=== PATIENT | female | born 1990 | race Caucasian/White ===

== ENCOUNTER 2024-02-03 13:44 | Outpatient (CLI) | payer BC, SELFPAY ==
--- NOTE | ~2024-02-03 | US_ITS ---
EXAMINATION: US pelvic complete w TV DATE: 02/03/2024 14:09 INDICATION: Abnormal uterine and vaginal bleeding. TECHNIQUE: Multiple transabdominal and transvaginal sonographic images of the pelvis were obtained. COMPARISON: None. FINDINGS: TRANSABDOMINAL ULTRASOUND: The uterus measures 8.3 x 5.4 x 4.4 cm. There is no free fluid in the pelvis. TRANSVAGINAL ULTRASOUND: The endometrial complex measures 8 mm in thickness. The right ovary measures 2.3 x 2.0 x 2.6 cm. The left ovary measures 5.5 x 5.0 x 2.6 cm. In the left ovary, there is a 4.9 cm cystic mass with low-lev el echoes, likely a hemorrhagic cyst. There is normal vascular flow in the ovaries. IMPRESSION: 1. 4.9 cm hemorrhagic cyst in left ovary. Pelvis ultrasound is recommended in 6-12 weeks. Reviewed, dictated and finalized at location A. TENDER CHIEF OPERATOR IMPRESSION: 1. 4.9 cm hemorrhagic cyst in left ovary. Pelvis ultrasound is recommended in 6 -12 weeks.
== END 2024-02-03 13:45 | disposition home or self-care (01) ==
LOC: GOSHIMG 13:45
PROVIDERS: PCP Nurse Practitioner Obstetrics & Gynecology; Visit Provider Nurse Practitioner Obstetrics & Gynecology
DX: N83.202 Unspecified ovarian cyst, left side (principal)
CPT/HCPCS: 76830; 76856

== ENCOUNTER 2024-02-05 12:45 | Outpatient (CLI) | payer BC, SELFPAY ==
[2024-02-08 05:34] LABS: Progesterone 7.3 ng/mL
== END 2024-02-05 12:46 | disposition home or self-care (01) ==
PROVIDERS: PCP Nurse Practitioner Obstetrics & Gynecology; Visit Provider Nurse Practitioner Obstetrics & Gynecology
DX: N93.9 Abnormal uterine and vaginal bleeding, unspecified (principal)
CPT/HCPCS: 36415; 84144; 84443

== ENCOUNTER 2024-05-07 10:57 | Outpatient (CLI) | payer BC, SELFPAY ==
[2024-05-08 02:28] LABS: Progesterone 6.1 ng/mL
== END 2024-05-07 10:58 | disposition home or self-care (01) ==
LOC: ANHLAB 10:58
PROVIDERS: PCP Nurse Practitioner Obstetrics & Gynecology; Visit Provider Nurse Practitioner Obstetrics & Gynecology
DX: Z31.69 Encounter for other general counseling and advice on procreation (principal)
CPT/HCPCS: 36415; 84144

== ENCOUNTER 2024-05-18 12:23 | Outpatient (CLI) | payer BC, SELFPAY ==
[2024-05-18 12:56] LABS: Hematocrit 40.5 % (37.0-47.0); Hemoglobin 13.3 g/dL (12.0-15.0); Mean Corpuscular HGB Conc 32.8 g/dl (32-36); Mean Corpuscular Hemoglobin 30.2 pg (26-34); Mean Platelet Volume 9.9 fl (7.4-10.4); Platelet Count Result 251 k/mm3 (150-375); Red Cell Distribution Width 12.6 % (11.5-14.5); White Blood Count 7.7 K/mm3 (4.5-10.0)
[2024-05-18 13:09] LABS: Alanine Aminotransferase 20 U/L (6-35); Albumin Level 4.9 g/dL (3.5-5.1); Alkaline Phosphatase 67 U/L (38-126); Anion Gap 13 mmol/L (4-12); Aspartate Amino Transferase 23 U/L (14-36); Bilirubin,Total 0.5 mg/dL (0.2-1.3); Blood Urea Nitrogen 13 mg/dL (7-17); Calcium 9.5 mg/dL (8.4-10.2); Carbon Dioxide 25 mmol/L (22-30); Chloride 103 mmol/L (98-107); Estimated Glomerular Filt Rate > 60; Glucose 86 mg/dL (65-110); Potassium 4.3 mmol/L (3.4-5.0); Sodium 141 mmol/L (137-145)
[2024-05-18 13:47] LABS: HIV 1/2 Ab P24 Ag Result Negative (Negative)
[2024-05-18 14:01] LABS: Rubella IgG Antibody 32.8 IU/ML
[2024-05-18 14:22] LABS: Hepatitis C Virus Antibody Negative (Negative)
[2024-05-18 15:24] LABS: Syphilis IgG/IgM Antibody Negative (Negative)
[2024-05-19 08:13] LABS: FSH 11.2 mIU/mL; Prolactin 4.6 ng/mL
[2024-05-19 11:38] LABS: Hepatitis Be Antigen NON-REACTIVE (NON-REACTIVE)
[2024-05-20 07:38] LABS: Varicella IgG Antibody 9.28 S/CO
== END 2024-05-18 12:24 | disposition home or self-care (01) ==
LOC: ANHLAB 12:25
PROVIDERS: PCP Nurse Practitioner Obstetrics & Gynecology; Visit Provider Obstetrics & Gynecology
DX: N97.9 Female infertility, unspecified (principal)
CPT/HCPCS: 36415; 80053; 83001; 84146; 85027; 86593; 86703; 86762; 86787; 86803; 87350; G0432

== ENCOUNTER 2024-05-26 10:31 | Outpatient (CLI) | payer BC, SELFPAY ==
--- NOTE | ~2024-05-26 | XR_ITS ---
TECHNIQUE: Hysterosalpingogram was performed by Dr. Hema Mitchell MD with fluoroscopic guidance. I was present to obtain fluoroscopic images. FINDINGS: Binder Cutter radiograph demonstrates an unremarkable pelvis. Fluoroscopic images demonstrates an elongated cervix of greater than 8 cm. The endometrial cavity is somewhat narrowed, but otherwise fluoroscopically unremarkable. Upon inject ion of contrast, both fallopian tubes opacify and are normal in appearance. No spillage into the pelvis is visualized. IMPRESSION: Markedly elongated cervix. Opacification of the bilateral fallopian tubes, without free spillage into the pelvis. Fluoroscopy time: 2.9 minutes DOSE AREA PRODUCT: 20.9 Gy-cm2 38 images Reviewed, dictated and finalized at location A.
[2024-05-26 11:45] LABS: Beta HCG Quantitative < 2.39 mIU/ML
== END 2024-05-26 10:32 | disposition home or self-care (01) ==
PROVIDERS: PCP Nurse Practitioner Obstetrics & Gynecology; Visit Provider Obstetrics & Gynecology
DX: N88.4 Hypertrophic elongation of cervix uteri (principal); N97.9 Female infertility, unspecified
CPT/HCPCS: 36415; 58340; 74740; 84702; Q9966

== ENCOUNTER 2024-11-03 04:13 | Day surgery (SDC) | payer BC, SELFPAY ==
[2024-10-22 13:18] VITALS: BMI 25.8
--- NOTE | 2024-10-22 13:25 | PC.NURSE ---
Report to the Outpatient Waiting Room, entrance under the green pavilion located off [facility], at time _1pm_ on date _[id number]_. Planned Procedure Time: _3pm_.? Time changes happen often and if your time is changed the preop area will call you the afternoon before. - You and your visitor will be asked to self-screen and do not enter if you have any COVID symptoms. Please call surgeon if you need to reschedule. - A mask is optional within the hospital at this time. Patients may have clear liquids (water, carbonated beverages, clear teas, apple juice) until 3 hours prior to surgery with a maximum of 20 ounces. - No food from midnight until time of surgery and no smoking, or chewing tobacco (or any form of nicotine). No chewing gum, candy or mints. Take only the following medications with a SIP of water on the morning of surgery: __None DO NOT STOP ANY OF YOUR OTHER PRESCRIPTION MEDICATIONS PRIOR TO SURGERY EXCEPT THE FOLLOWING Hold all vitamins and supplements for 3 days per anesthesiologist. Medications to discontinue per physician Date to take last dose Please no make-up, nail british, hairspray, perfume, deodorant, or body powder the day of surgery.? No jewelry (including any body piercings) or valuables the day of surgery, leave them at home.? Please take a shower or bath the night before, or the morning of, surgery with an antibacterial soap.? Wear comfortable, loose fitting clothing.? - Jewelry must be removed prior to entering the operating room.? Rings and piercings that are not removed may be cut off. - The hospital will not accept responsibility for valuables.? - Please leave all valuables, including medications, at home the day of surgery. If you are going home after surgery, a licensed explosives truck driver must drive you home.? - NO public transportation without another adult if you receive anesthesia. - We recommend that an adult stay with you for 24 hours following discharge. - We also recommend that you do not drive, make important decision, drink alcoholic beverages, or take any drugs that were not prescribed by your health care provider for at least 24 hours after your discharge time. Follow any additional instructions given to you from your surgeon. Telephone instructions given to __Ramiroskye__and asked if any additional questions and then verbalized understanding. Patient advised to call surgeon office or pre surgery nurse liaison [phone] if any additional questions.
[2024-11-03] VITALS (8 sets, daily range): BP systolic 106–159; BP diastolic 60–83; PULSE 72–97; RESP 12–16; TEMP 37.1; O2SAT 97–100
--- NOTE | 2024-11-03 09:25 | PM.IMHP ---
H&P: HPI History of Present Illness Date/Time: 11/03/24 09:25 Chief Complaint: Hydrosalpinx Narrative: 34 y/o nulligravida who has been trying for since June 2023. She had an HSG which showed bilateral occlusion of the Fallopian tubes. She has been seen at [facility] and found to have diminished ovarian reserve. In addition, ultrasound exam suggests right hydrosalpinx and likely pelvic adhesions. Dr. Adan, the [facility], has recommended right salpingectomy, and possible left salpingectomy if hydrosalpinx is seen there as well. Gricelda reports that menses occur every 28-30 days with 4 days of flow. Cramping has gotten worse over the last few cycles, but has never really been too bad. She has no dyspareunia. She has no pain with emptying bowel or bladder. She is interested in surgical evaluation and treatment with the goal of optimizing chances of conception with IVF/ET. Review of Systems Review of Systems: All systems reviewed & are unremarkable except as noted in HPI and below PMFSH Past Medical History Medical History Migraine Surgical History Surgical History H/O oral surgery Hx of LASIK Family History Family History Grandparent Cancer Diabetes mellitus Mother Hypertension Father Hypertension Social History Social History Smoking status: Never smoker Alcohol intake: current Substance use: never Living arrangements: with family Spiritual care concerns: No Meds Home Medications and Allergies Home Medications ?Medication ?Instructions ?Recorded ?Confirmed ?Type arginine HCl (L-arginine) 1,000 mg 1,000 mg PO BID 10/21/24 10/22/24 History tablet melatonin 3 mg capsule 3 mg PO QHS 10/21/24 10/22/24 History prasterone (DHEA) 25 mg tablet 25 mg PO BID 10/21/24 10/22/24 History (DHEA) vits no.130-ferrous fum 1 tablet PO DAILY 10/22/24 10/22/24 History 27 mg iron-folic acid 800 mcg tablet ( Vitamin) Allergies Allergy/AdvReac Type Severity Reaction Status Date / Time Sulfa (Sulfonamide Allergy Rash Verified 10/22/24 13:16 Antibiotics) Exam Const: Orientation/consciousness: patient oriented x3 Other: Well-developed, well-nourished female in no acute distress. Neck: Thyroid: thyroid normal Lymphatic: no lymphadenopathy noted (in neck, axilla or inguinal nodes) Resp: Effort & Inspection: normal respiratory effort Auscultation: clear to auscultation bilaterally Cardio: Rate: regular rate Rhythm: regular rhythm Heart sounds: S1 normal heart sound present and S2 normal heart sound present GI: Other: ABD: Soft, nontender, nondistended. No guarding or rebound tenderness. No hepatosplenomegaly. : General: Yes no CVA tenderness Other: Deferred to the OR Back/Spine/Pelvis: Back: no CVA tenderness Skin: General skin exam: normal color and no rashes or lesions noted Neuro: General: patient oriented x3 Extrem: Other: Extremities: nontender with no edema Psych: Mental Status: mental status grossly normal Affect: normal affect Assessment and Plan Assessment and plan (1) Hydrosalpinx: Code(s): N70.11 - Chronic salpingitis Status: Acute Assessment and Plan: A: Right hydrosalpinx. P: I have offered laparoscopic right salpingectomy, possible bilateral salpingectomy. She understands risks of surgery to include risks of anesthesia, risks of pain, infection, bleeding, blood products, thromboembolic phenomena and damage to adjacent structures such as bowel, bladder, ureters, blood vessels and nerves. She understands all these risks and elects to proceed with surgery.
--- NOTE | 2024-11-03 13:47 | WPDHPUPDATE1 ---
History and Physical Update Update Date/Time: 11/03/24 13:47 History and Physical has been reviewed, including an updated exam of the patient. There are NO changes in the patient's condition. Consent was signed for diagnostic laparoscopy, right salpingectomy, possible right salpingo oophorectomy, possible left salpingectomy, possible peritoneal biopsy, possible cautery of endometriosis. Risks, benefits, and alternatives have been discussed and questions answered. Patient agrees to proceed with procedure.
[2024-11-03] MEDS: ACETAMINOPHEN 500 MG TABLET 1000 MG PO (13:58)
--- NOTE | 2024-11-03 14:04 | P.PNAN_ITS ---
Anes - Initial Pre Proc Eval Procedure: Operation Date: 11/03/24 15:00 Proposed Procedures p Diagnostic Laparoscopy with Right Salpingectomy, Possible Right Salpingo Oophorectomy - Yonny Chatman MD Date/Time: 11/03/24 14:04 Surgeon: Yonny Chatman MD Pre Op Diagnosis: right hydrosalpinx Patient Data Age: 34 Gender: F Height: 1.63 m Weight: 68.2 kg Allergies Allergy/AdvReac Type Severity Reaction Status Date / Time Sulfa (Sulfonamide Allergy Rash Verified 11/03/24 13:07 Antibiotics) Home Medications ?Medication ?Instructions ?Recorded ?Confirmed ?Type arginine HCl (L-arginine) 1,000 mg 1,000 mg PO BID 10/0811/03/24 History tablet melatonin 3 mg capsule 3 mg PO QHS 10/21/24 5 History prasterone (DHEA) 25 mg tablet 25 mg PO BID 10/21/24 0 11/03/24 History (DHEA) vits no.130-ferrous fum 1 tablet PO DAILY 11/0811/03/24 History 27 mg iron-folic acid 800 mcg tablet ( Vitamin) Patient hx anesthesia problems: none Family hx anesthesia problems: none Results Review: All pre-operative results and documents have been reviewed as part of the pre- operative evaluation. [facility] Past Medical History Medical History Migraine Surgical History Surgical History H/O oral surgery Hx of LASIK Family History Family History Grandparent Cancer Diabetes mellitus Mother Hypertension Father Hypertension Social History Social History Smoking status: Never smoker Alcohol intake: current Substance use: never Living arrangements: with family Spiritual care concerns: No Anes - Eval Final PreProcedure Day of Procedure 11/03/24 14:04 Patient weight: overweight Heart: regular rate and rhythm Lungs: clear to auscultation Airway: Mallampati scale class II Neurological: alert and oriented Last oral intake: >/= 8 hours ASA classification: I Emergent: no Anesthetic plan: proceed Anesthesia type and monitoring: general ETT and standard monitoring Results Review: All pre-operative results and documents have been reviewed as part of the pre- operative evaluation. Informed Consent: The patient's anesthetic plan and its attendant risks and benefits were discussed with the patient/family/POA. Questions were solicited and answers provided to the satisfaction of the patient/family/POA.
[2024-11-03] MEDS: LACTATED RINGERS 1,000 ML 30 ML IV CONT ×2 (14:10→15:50)
[2024-11-03] MEDS: KETOROLAC 15 MG/ML VIAL (*BKC) IV PUSH (14:12)
[2024-11-03 14:33] LABS: BEDSIDEPREGUCG Negative (Negative)
--- NOTE | 2024-11-03 15:28 | S_PTH ---
PATIENT: Gricelda Up [place] [facility] [place][id number] AGE/SX: 34/F ROOM: RE11/03/[address]: Yonny Chatman MD : 1990 BED: DIS: 11/03/2024 SPEC #: [id number] RECD: 11/04/24 09:33 STATUS: SOPHIE REQ #: [id number] BRAULIO: 11/03/24 15:[address]: Yonny Chatman DEPT: [facility] Surgical RECD BY: Alexia Ceron Tissues: A - Fallopian Tube Bilateral Procedures: Gross and Microscopic Level 2 Hematoxylin and Eosin Stain
--- NOTE | 2024-11-03 15:59 | P.OP_ITS ---
Procedure Note - Detailed Date of Procedure 11/03/24 Pre-op Diagnosis Right Hydrosalpinx Post-op Diagnosis Other (Bilateral hydrosalpinges; pelvic adhesions) Procedure Performed Diagnostic laparoscopy Lysis of adhesions Bilateral salpingectomies Surgeon Yonny Chatman MD Anesthesia General Findings The right upper quadrant anatomy was unremarkable. The vermiform appendix was not seen. There were some filmy adhesions at the anterior cul-de-sac, but overall this was free. Bilateral round ligaments were unremarkable. The posterior cul-de-sac was totally obliterated by adhesive disease. The right tube was obviously dilated and encased in adhesions. The left tube was moderately dilated, and was also encased in dense adhesions. Both ovaries were encased in adhesions in the posterior cul-de-sac. Bowel was also adherent to the adhesions in the posterior cul-de-sac. Uterosacral ligaments were not vi sualized satisfactorily. Description of Procedure The patient was taken to the operating room where general endotracheal anesthesia was administered. She was prepared and draped in the usual sterile fashion in the dorsal lithotomy position. The bladder was drained with a red rubber catheter. A sterile speculum was inserted into the vagina and the anterior lip of the cervix was grasped with a single-toothed tenaculum. The acorn uterine manipulator was placed. The speculum was withdrawn. Gloves were changed and attention was turned to the abdomen. An infraumbilical skin incision was made with a scalpel. The abdomen was tented and a 5 millimeter bladeless trocar trocar was advanced under direct laparoscopic visualization. Pneumoperitoneum was administered using carbon dioxide gas. Additional 5mm ports were advanced in the right and left lower quadrants using bladeless trocars under direct laparoscopic visualization. A survey of the pelvis and abdomen yielded the findings noted above. Adhesions in the posterior cul-de-sac were gently and carefully lysed, ultimately allowing visualization as above. However, adequate visualization of the posterior cul-de-sac, especially on the left side, was precluded by the presence of bowel incorporated in the mass of adhesions. The right fallopian tube was dissected free using LigaSure. It was amputated as close as possible to the uterine serosa. The left fallopian tube was similarly dissected. The very proximal portion of the tube was obscured by adhesive disease and adjacent to bowel, so more aggressive dissection was not undertaken. Nonetheless, nearly all of the tube was able to be excised. The pelvis was irrigated copiously with warmed normal saline, and hemostasis was excellent. The 5 mm port in the left lower quadrant was replaced by a 10-11 mm port, and an endobag was advanced. The Fallopian tubes were passed off to be sent to pathology. The Papo cone was used to pass a suture of 0 Vicryl to reapproximate the fascia in the left lower quadrant. Trocars were removed and the gas was allowed to escape. The skin incisions were reapproximated using 4-0 Vicryl in interrupted subcuticular fashion. Dermaflex was applied externally. The vaginal instrumentation was withdrawn and hemostasis was excellent here as well. Sponge, lap, needle and instrument counts were correct. The patient was awakened and taken to recovery in stable condition. I was present and scrubbed through the entire procedure. Implants None Estimated Blood Loss 10 Drains No Packing No Pathology Yes (Bilateral Fallopian tubes) Complications None Condition Stable Disposition PACU [facility] Billing Surgery - Charge Forward: Surgery Billing
[2024-11-03] MEDS: fentaNYL CITRATE INJ (*CRX) 100 MCG/2 ML VIAL 25 MCG IV PUSH (17:04)
[2024-11-03] MEDS: oxyCODONE HCL (*CRX) 5 MG TAB IR PO (17:31)
[2024-11-03] MEDS: ONDANSETRON INJ 4 MG/2 ML VIAL IV PUSH (17:50)
== END 2024-11-03 18:30 | disposition home or self-care (01) ==
PROVIDERS: Visit Provider Obstetrics & Gynecology
PROC: (CPT 49320; principal; 2024-11-03 15:00)
DX: N70.11 Chronic salpingitis (principal); N73.6 Female pelvic peritoneal adhesions (postinfective); G89.18 Other acute postprocedural pain; Z98.890 Other specified postprocedural states; Z80.9 Family history of malignant neoplasm, unspecified
CPT/HCPCS: 58661; 88302; A9270; J1100; J1171; J1885; J2250; J2405; J2704; J3010; J7030; J7120